=== PATIENT | female | born 1945 | race Caucasian/White ===

== ENCOUNTER → 2022-09-26 | Outpatient (CLI) | payer MEDICARE ==
[~2022-09-26] MED LIST: AMLO-258 PO; ATOR10TA69 PO; CALCIUM PO; GARL1000 PO; HYDR-2132 PO; MAGNESIUM PO; METF-444 PO; MVI PO; OMEP40CA21 PO; POTASSIUM GLUCONATE PO; VITAMIN D3 PO; VITAMIN E PO; [UNRECOGNIZED DRUG - CODE] PO
== END | disposition home or self-care (01) ==
LOC: SHCH 10:25
PROVIDERS: ATTEND Internal Medicine Cardiovascular Disease
DX: I87.2 Venous insufficiency (chronic) (peripheral) (principal)
CPT/HCPCS: 93970

== ENCOUNTER → 2024-02-26 | Outpatient (CLI) | payer MEDICARE ==
[~2024-02-26] MED LIST changes: -GARL1000 PO; +GARL10002 PO
--- NOTE | 2024-03-03 09:57 | HMCSR ---
APPROVED REPORT Laterality: Bilateral Doppler Spectral Velocity Analysis PSV / EDVPSV / EDV ECA (R) 97 / cm/sECA (L) 83 / cm/s dICA (R) 112 / 47 cm/sdICA (L) 81 / 29 cm/s Penelope (R) 81 / 24 cm/smICA (L) 89 / 33 cm/s pICA (R) 57 / 14 cm/spICA (L) 86 / 21 cm/s dCCA (R) 58 / 11 cm/sdCCA (L) 64 / 12 cm/s mCCA (R) 73 / 20 cm/smCCA (L) 93 / 13 cm/s pCCA (R) 89 / 19 cm/spCCA (L) 124 / 16 cm/s Vert (R) 36 / cm/sVert (L) 69 / cm/s Subl. (R) 251 / cm/sSubl. (L) 117 / cm/s ICA/CCA 1.26ICA/CCA 0.72 Technologist Impression Minimal plaque noted in the bilateral carotid arteries without hemodynamic significance. Tortuosity is noted in the left common carotid and left internal carotid artery. The bilateral vertebral arteries appear antegrade, pre-occlusive waveforms noted in the right vertebr al artery. Elevated velocities noted in the right subclavian artery.
== END | disposition home or self-care (01) ==
LOC: SHCH 08:08
PROVIDERS: ATTEND Internal Medicine Cardiovascular Disease
DX: I65.21 Occlusion and stenosis of right carotid artery (principal)
CPT/HCPCS: 93880

== ENCOUNTER → 2024-05-11 | Outpatient (CLI) | payer MEDICARE ==
--- NOTE | 2024-05-19 16:19 | HMCSR ---
APPROVED REPORT Bilateral Lower Extremity Venous Study for DVT., Venous Competence. Indications i87.1,i87.2 Vein Imaging CFV (R): Normal flow, augmentation and compression. No evidence of DVT. 12.5mm 1311ms of reflux. SFJ (R): Normal flow, augmentation and compression. No evidence of DVT. FEM (R): Normal flow, augmentation and compression. No evidence of DVT. POP (R): Normal flow, augmentation and compression. No evidence of DVT. DFV (R): Normal flow, augmentation and compression. No evidence of DVT. PTV (R): Normal flow, augmentation and compression. No evidence of DVT. Peroneals (R): Normal flow, augmentation and compression. No evidence of DVT. CFV (L): Normal flow, augmentation and compression. No evidence of DVT. 13.6mm 1144ms of reflux. SFJ (L): Normal flow, augmentation and compression. No evidence of DVT. FEM (L): Normal flow, augmentation and compression. No evidence of DVT. POP (L): Normal flow, augmentation and compression. No evidence of DVT. DFV (L): Normal flow, augmentation and compression. No evidence of DVT. PTV (L): Normal flow, augmentation and compression. No evidence of DVT. Peroneals (L): Normal flow, augmentation and compression. No evidence of DVT. Technologist Impression Deep veins of the bilateral lower extremities appear patent and compressible without thrombus. Deep venous reflux noted in the RCFV and LCFV. Superficial venous insufficiency noted in the RGSV. RGSV junction 6.7mm 500ms thigh 3.3mm 0.0ms knee 3.1mm 0.0ms calf 2.0mm 1122ms RSSV prox 2.0mm 0.0ms midi 2.2mm 0.0ms LGSV junction 6.5mm 422ms thigh 3.3mm 0.0ms knee 2.3mm 0.0ms calf 1.7mm 0.0ms LSSV prox 2.2mm 0.0ms mid 2.2mm 0.0ms
== END | disposition home or self-care (01) ==
LOC: SHCH 13:08
PROVIDERS: ATTEND Internal Medicine Cardiovascular Disease
DX: I87.2 Venous insufficiency (chronic) (peripheral) (principal); I87.1 Compression of vein
CPT/HCPCS: 93970

== ENCOUNTER → 2024-06-14 | Outpatient (CLI) | payer MEDICARE ==
[2024-06-14 12:31] LABS: BASOPHILS # (AUTO) 0.13 K/uL (0.00-0.20); EOSINOPHILS % (AUTO) 3.1 % (0.0-8.0); HEMATOCRIT 39.9 % (36-48); IMMATURE GRANULOCYTE ABSOLUTE 0.08 K/uL (0-1); LYMPHOCYTES # (AUTO) 4.3 K/uL (1.0-4.8); LYMPHOCYTES % (AUTO) 32.9 % (21.0-51.0); MEAN CORPUSCULAR HEMOGLOBIN 29.7 pg (27.0-33.0); MEAN CORPUSCULAR HGB CONC 31.8 g/dL (32.0-36.0); MEAN CORPUSCULAR VOLUME 93.4 fL (79-99); MONOCYTES # (AUTO) 1.1 K/uL (0.1-1.0); MONOCYTES % (AUTO) 8.3 % (3.0-13.0); NEUTROPHILS # (AUTO) 7.1 K/uL (1.8-7.7); NEUTROPHILS % (AUTO) 54.1 % (40.0-77.0); PLATELET COUNT (AUTO) 396 K/uL (130-400); RED BLOOD CELL COUNT(AUTO) 4.27 MIL/uL (4.00-5.50); RED CELL DISTRIBUTION WIDTH 14.4 % (11.0-15.5); WHITE BLOOD COUNT (AUTO) 13.1 K/uL (4.8-10.8)
[2024-06-14 12:46] LABS: INR 0.99 (0.85-1.15); PROTHROMBIN TIME 10.5 SEC (9.6-11.6)
[2024-06-14 12:51] LABS: ALBUMIN 3.7 g/dL (3.5-5.0); BILIRUBIN,TOTAL 0.3 mg/dL (0.2-1.0); CREATININE 1.4 mg/dL (0.5-1.0); POTASSIUM 4.1 mmol/L (3.5-5.1); TOTAL PROTEIN, SERUM 7.4 g/dL (6.0-8.3)
== END | disposition home or self-care (01) ==
LOC: LAB 08:05
PROVIDERS: ATTEND Internal Medicine Cardiovascular Disease
DX: I87.1 Compression of vein (principal); I65.21 Occlusion and stenosis of right carotid artery; E78.5 Hyperlipidemia, unspecified; E66.01 Morbid (severe) obesity due to excess calories; J44.9 Chronic obstructive pulmonary disease, unspecified; G47.30 Sleep apnea, unspecified; I12.9 Hypertensive chronic kidney disease with stage 1 through stage 4 chronic kidney disease, or unspecified chronic kidney disease; N18.30 Chronic kidney disease, stage 3 unspecified; M54.50 Low back pain, unspecified; G89.29 Other chronic pain; M16.0 Bilateral primary osteoarthritis of hip; I45.10 Unspecified right bundle-branch block; R74.01 Elevation of levels of liver transaminase levels; Z79.01 Long term (current) use of anticoagulants; Z79.899 Other long term (current) drug therapy
CPT/HCPCS: 36415; 80053; 85025; 85610; 85730